=== PATIENT | female | born 1955 | race Two or more races ===

== ENCOUNTER 2022-10-03 07:05 | Day surgery (SDC) | payer OTHER ==
[~2022-10-03 07:05] MED LIST: IRBESARTAN300 MG PO; SYNTHROID75 MCG PO; TOPROL XL50 M1 PO; WELLBUTRIN XL300 MG PO
[2022-10-03] MEDS ORDERED: CEPHALEXIN500 MG PO (11:39)
== END 2022-10-03 13:30 | disposition home or self-care (01) ==
LOC: CIR.AMB 07:05
PROVIDERS: ATTEND Obstetrics & Gynecology Gynecology
DX: N32.81 Overactive bladder (principal); N39.41 Urge incontinence; I10 Essential (primary) hypertension; E03.9 Hypothyroidism, unspecified; Z20.822 Contact with and (suspected) exposure to COVID-19
CPT/HCPCS: 64581; 64590; 95972; C1778; L8679